=== PATIENT | female | born 1945 | race Hispanic/Latino ===

== ENCOUNTER → 2020-09-21 | Outpatient (CLI) | payer OTHER | END | disposition home or self-care (01) | LOC: SHCH 13:17 | PROVIDERS: ATTEND Internal Medicine Cardiovascular Disease | DX: R01.1 Cardiac murmur, unspecified (principal); R60.9 Edema, unspecified | CPT/HCPCS: 93306; 93356; 93970 ==

== ENCOUNTER → 2022-03-14 | Outpatient (CLI) | payer OTHER | END | disposition home or self-care (01) | LOC: SHCH 10:09 | PROVIDERS: ATTEND Internal Medicine Cardiovascular Disease | DX: I10 Essential (primary) hypertension (principal); I67.9 Cerebrovascular disease, unspecified; E11.9 Type 2 diabetes mellitus without complications; E78.5 Hyperlipidemia, unspecified | CPT/HCPCS: 93306 ==

== ENCOUNTER → 2023-06-25 | Outpatient (CLI) | payer OTHER | END | disposition home or self-care (01) | LOC: SHCH 12:40 | PROVIDERS: ATTEND Internal Medicine Cardiovascular Disease | DX: I65.23 Occlusion and stenosis of bilateral carotid arteries (principal) | CPT/HCPCS: 93880 ==

== ENCOUNTER → 2023-11-01 | Outpatient (CLI) | payer OTHER | END | disposition home or self-care (01) | LOC: RAH 08:13 | PROVIDERS: ATTEND Internal Medicine | DX: S00.93XD Contusion of unspecified part of head, subsequent encounter (principal); R41.0 Disorientation, unspecified; G31.9 Degenerative disease of nervous system, unspecified; Z91.81 History of falling; X58.XXXD Exposure to other specified factors, subsequent encounter | CPT/HCPCS: 70450 ==

== ENCOUNTER → 2024-12-04 | Outpatient (CLI) | payer OTHER ==
--- NOTE | 2024-12-05 06:57 | HMCIMG ---
EXAM: CR Pelvis and Bilateral Hips, 2 views. CLINICAL HISTORY: Pain. COMPARISON: None provided. FINDINGS: No acute fracture or aggressive appearing osseous lesion. Generalized osteopenia is seen. Joint spaces are within normal limits. The soft tissues are unremarkable. IMPRESSION: Generalized osteopenia is seen. No acute fracture or dislocation. /[place]
--- NOTE | 2024-12-05 06:57 | HMCIMG ---
EXAM: CR Lumbar Spine, 4 views. CLINICAL HISTORY: Pain. COMPARISON: None provided. FINDINGS: Scoliosis of lumbar spine with convexity toward right. No acute fracture or dislocation. All lumbar intervertebral disc spaces are reduced. Osteophytic lipping of articular margin is noted. Generalized osteopenia is seen. Atherosclerotic aortic calcification is noted. IMPRESSION: Moderate lumbar spondylosis. No acute fracture or dislocation. /[place]
== END | disposition home or self-care (01) ==
LOC: RAH 16:40
PROVIDERS: ATTEND Physician Assistant
DX: M47.26 Other spondylosis with radiculopathy, lumbar region (principal); M85.89 Other specified disorders of bone density and structure, multiple sites; I70.0 Atherosclerosis of aorta; M41.86 Other forms of scoliosis, lumbar region; M54.51 Vertebrogenic low back pain; Z91.81 History of falling; M25.551 Pain in right hip; M25.552 Pain in left hip
CPT/HCPCS: 72110; 73521

== ENCOUNTER → 2025-01-28 | Outpatient (CLI) | payer OTHER, MEDICARE ==
--- NOTE | 2025-01-28 23:30 | HMCIMG ---
EXAM: MRI CERVICAL SPINE WITHOUT CONTRAST Technique: Multiplanar, multisequence magnetic resonance imaging of the cervical spine without intravenous contrast. Contrast: No intravenous contrast administered. Clinical Information: Quadriplegia (unspecified). Findings: Alignment: Straightening of the normal cervical lordosis with mild anterolisthesis of C7 on T1. Vertebral bodies: No compression deformity. Anterior cervical discectomy and fusion spanning C3???C7. Bone marrow signal: No focal marrow signal abnormality. Spinal cord: Normal caliber and signal without intrinsic cord lesion. Paraspinal soft tissues: No edema or mass. C2???C3: Disc height reduction; mild right neural foraminal stenosis; no central canal stenosis. C3???C4: Diffuse disc bulge with facet and uncovertebral arthropathy; severe bilateral foraminal stenosis (right greater than left) with exiting nerve root impingement; mild central canal stenosis. C4???C5: Postoperative level with obliterated disc space and facet/uncovertebral arthropathy; severe bilateral foraminal stenosis with exiting nerve root impingement; no central canal stenosis. C5???C6: Postoperative level with obliterated disc space and facet/uncovertebral arthropathy; severe bilateral foraminal stenosis with exiting nerve root impingement; no central canal stenosis. C6???C7: Postoperative level with obliterated disc space and facet/uncovertebral arthropathy; severe bilateral foraminal stenosis with exiting nerve root impingement; no central canal stenosis. C7???T1: No significant disc bulge; patent foramina; no central canal stenosis. IMPRESSION: 1. Prior anterior cervical discectomy and fusion (ACDF) spanning C3-C7. 2. Severe bilateral neural foraminal stenosis from C3-C4 through C6-C7, worst at C3-C4, with exiting nerve root impingement at all these levels. 3. Mild central canal stenosis at C3-C4. 4. Mild right foraminal stenosis at C2-C3. 5. Straightened cervical lordosis with mild anterolisthesis of C7 on T1. 6. Normal cervical cord caliber and signal without intrinsic cord lesion. 7. No compression deformity of vertebral bodies or focal marrow signal abnormality. /[place]
--- NOTE | 2025-01-29 05:29 | HMCIMG ---
EXAM: CR Lumbar Spine, 4 View. CLINICAL HISTORY: LBP, RADUCULOPATHY, FLEX AND EXTENSION COMPARISON: None provided. FINDINGS: BONES: No acute fracture or aggressive appearing osseous lesion. ALIGNMENT: Moderate to severe dextroscoliosis. DISCS / DEGENERATIVE CHANGES: Severe spondylotic changes with reduced disc space at all levels. SOFT TISSUES: Calcification of abdominal aortic wall. IMPRESSION: Severe spondylotic changes with reduced disc space at all levels. Moderate to severe dextroscoliosis. /[place]
--- NOTE | 2025-01-29 05:29 | HMCIMG ---
EXAM: CR bilateral Hips, 2 View. CLINICAL HISTORY: BI LAT HIP PAIN, HX OF FALL COMPARISON: None provided. FINDINGS: BONES: No acute fracture or aggressive appearing osseous lesion. JOINTS: No dislocation. 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 SOFT TISSUES: The soft tissues are unremarkable. IMPRESSION: No acute osseous abnormality. 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 /[place]
== END | disposition home or self-care (01) ==
LOC: RAH 11:31
PROVIDERS: ATTEND Physical Medicine & Rehabilitation
DX: M16.0 Bilateral primary osteoarthritis of hip (principal); M43.13 Spondylolisthesis, cervicothoracic region; M50.31 Other cervical disc degeneration, high cervical region; M47.26 Other spondylosis with radiculopathy, lumbar region; M51.360 Other intervertebral disc degeneration, lumbar region with discogenic back pain only; M41.86 Other forms of scoliosis, lumbar region; I70.0 Atherosclerosis of aorta; M48.02 Spinal stenosis, cervical region; G82.50 Quadriplegia, unspecified; M25.551 Pain in right hip; M25.552 Pain in left hip; Z91.81 History of falling; Z98.1 Arthrodesis status
CPT/HCPCS: 72114; 72141; 73521

== ENCOUNTER → 2025-03-25 | Outpatient (CLI) | payer OTHER ==
[2025-03-25] MEDS: REGADENOSON 0.4 MG/5 ML PF SYG IVP ONE (09:06)
== END | disposition home or self-care (01) ==
LOC: RAH 08:26
PROVIDERS: ATTEND Internal Medicine Cardiovascular Disease
DX: I11.0 Hypertensive heart disease with heart failure (principal); I50.22 Chronic systolic (congestive) heart failure
CPT/HCPCS: 78452; 93017; J2785; A9500 ×2